=== PATIENT | male | born 1990 | race African-American/Black ===

== ENCOUNTER 2017-04-07 17:24 | Emergency (ER) | payer OTHER ==
[2017-04-07 17:35] VITALS: BP 124/53; PULSE 80; TEMP 98; BMI 32.5
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
== END 2017-04-07 19:48 | disposition home or self-care (01) ==
LOC: JERFT 17:24
DX: S00.01XA Abrasion of scalp, initial encounter (principal); W20.8XXA Other cause of strike by thrown, projected or falling object, initial encounter; Y93.89 Activity, other specified; Y92.118 Other place in children's home and orphanage as the place of occurrence of the external cause; Y99.0 Civilian activity done for income or pay
CPT/HCPCS: 99281-25